=== PATIENT | female | born 1945 | race African-American/Black ===

== ENCOUNTER 2017-05-05 09:38 | Observation (INO) ==
[2017-05-05] MEDS ORDERED: MORPHINE 2 MG/1 ML SYRINGE IV PRN (09:54)
[2017-05-05] MEDS ORDERED: ONDANSETRON 4 MG/2 ML VIAL IV PRN ×2 (09:54→13:56)
[2017-05-05] MEDS ORDERED: ASPIRIN 325 MG TABLET PO STA (09:54)
[2017-05-05 10:33] LABS: Basophils % 0.6 % (0.0-0.8); Eosinophils # 0.1 10*3/uL (0.0-0.87); Eosinophils % 1.4 % (0.00-10.9); Hematocrit 41.1 VOL% (35.7-47.0); Immature Granulocytes % 0.2 %; Immature Granulocytes Absolute 0.01 #; Lymphocytes # 1.3 10*3/uL (1.4-4.0); Lymphocytes % 25.3 % (21.3-54.2); Mean Corpuscular HGB Conc 31.6 GM/DL (32-36); Mean Corpuscular Hemoglobin 27 PG (27-34); Mean Corpuscular Volume 83.9 FL (87-102); Mean Platelet Volume 11.4 FL (9.6-12.0); Monocytes # 0.4 10*3/uL (0.11-0.8); Neutrophils # 3.4 10*3/uL (1.4-7.4); Neutrophils % 65.5 % (38.7-73.9); Platelet Count 218 T/CUMM (130-400); Red Cell Distribution Width 14.1 % (9.3-17.3); White Blood Count 5.1 T/CUMM (4-12)
[2017-05-05 10:40] LABS: Apearance,Urine Clear (Clear); Urine Color Yellow (Yellow)
[2017-05-05 10:41] LABS: Bilirubin,Urine Negative (Negative); Blood, Urine Negative (Negative); Glucose,Urine (UA) Negative (Negative); Ketones,Urine Negative (Negative); Nitrite,Urine Negative (Negative); Protein,Urine Negative; Urine Urobilinogen 0.2 EU/DL (0.2-1.0)
[2017-05-05 10:49] LABS: Barbiturates Screen,Urine Negative (Negative); Benzodiazepines Screen,Urine Negative (Negative); Cannabinoid Screen,Urine Negative (Negative); Opiate Screen,Urine Negative (Negative); Phencyclidine Screen,Urine Negative (Negative)
[2017-05-05 10:54] LABS: Albumin 3.9 G/DL (3.4-5.0); Bilirubin,Total 0.4 MG/DL (0.2-1.0); Calcium 9.7 MG/DL (8.5-10.1); Potassium 4.7 MMOL/L (3.5-5.1); Total Protein 7.3 G/DL (6.4-8.3)
[2017-05-05 11:55] LABS: PT Patient Result 10.7 SECS; Partial Thromboplastin Time 25.3 SECS (0-40)
[2017-05-05] MEDS ORDERED: ACETAMINOPHEN 325 MG TABLET PO PRN (13:56)
[2017-05-05] MEDS ORDERED: SODIUM CHLORIDE 0.9% 1,000 ML IV SCH (13:56)
[2017-05-05] MEDS ORDERED: ASPIRIN 325 MG TABLET ONE (15:12)
[2017-05-05] MEDS ORDERED: hydrALAZINE 20 MG/1 ML VIAL IV PRN (15:45)
[2017-05-05] MEDS: amLODIPine 5 MG TABLET PO SCH (17:22)
[2017-05-05 19:32] LABS: Troponin I Only < 0.015 NG/ML (0.00-0.045)
[2017-05-05] MEDS ORDERED: ENOXAPARIN 40 MG/0.4 ML SYRINGE SUBCUT SCH (21:00)
[2017-05-05] MEDS: DOCUSATE SODIUM 100 MG CAPSULE PO SCH (21:31)
[2017-05-06 06:48] LABS: Risk Ratio 2.58; VLDL CHOLESTEROL 8.6 MG/DL
[2017-05-06] MEDS ORDERED: ASPIRIN EC 81 MG TABLET PO SCH (09:00)
[2017-05-06] MEDS ORDERED: PANTOPRAZOLE 40 MG TABLET PO SCH (09:00)
[2017-05-06] MEDS: DOCUSATE SODIUM 100 MG CAPSULE PO SCH (10:20)
[2017-05-06] MEDS: amLODIPine 5 MG TABLET PO SCH (10:20)
[2017-05-06 16:59] VITALS: BP 108/68
== END 2017-05-06 18:43 | disposition home or self-care (01) ==
LOC: N.ED 09:38 → N.EDINP 09:38 → N.TELEN 15:48
PROVIDERS: ADMIT Family Medicine; ATTEND Family Medicine